=== PATIENT | male | born 1980 | race Asian ===

== ENCOUNTER 2018-01-22 05:53 | Day surgery (SDC) | payer OTHER ==
[~2018-01-22] VITALS: Ht 167.6 cm; Wt 78.6 kg
[~2018-01-22 05:53] MED LIST: ADV250 IH; ALBU8HFA IH; CYCLOPENTOLATE HCL 2% 2 ML OPHTHALMIC SOLUTION ONE; KETOROLAC TROMETHAMINE 0.5% 5 ML OPHTHALMIC SOLUTION ONE; MOXIFLOXACIN HCL 0.5% 3 ML OPHTHALMIC SOLUTION ONE; PHENYLEPHRINE HCL 2.5% 2 ML OPHTHALMIC SOLUTION ONE; RINGERS SOLUTION,LACTATED 500 ML IV ONE; TETRACAINE HCL/PF 0.5% 4 ML OPHTHALMIC SOLUTION ONE
[2018-01-22] MEDS ORDERED: HYALURONATE SODIUM 12 MG/ML 0.8 ML SYRINGE IO ONE (05:54)
[2018-01-22] MEDS ORDERED: ACETAMINOPHEN 325 MG TABLET PO PRN (06:00)
[2018-01-22] MEDS ORDERED: RINGERS SOLUTION,LACTATED 500 ML IV ONE (06:00)
[2018-01-22] MEDS: MOXIFLOXACIN HCL 0.5% 3 ML OPHTHALMIC SOLUTION OD SCH ×3 (06:41→06:54)
[2018-01-22] MEDS: KETOROLAC TROMETHAMINE 0.5% 5 ML OPHTHALMIC SOLUTION OD SCH ×3 (06:41→06:54)
[2018-01-22] MEDS: CYCLOPENTOLATE HCL 2% 2 ML OPHTHALMIC SOLUTION OD SCH ×3 (06:41→06:54)
[2018-01-22] MEDS: PHENYLEPHRINE HCL 2.5% 2 ML OPHTHALMIC SOLUTION OD SCH ×3 (06:41→06:54)
[2018-01-22] MEDS: TETRACAINE HCL/PF 0.5% 4 ML OPHTHALMIC SOLUTION OD SCH ×3 (06:41→06:54)
[2018-01-22] MEDS ORDERED: LIDOCAINE HCL/PF 1% 2 ML VIAL ONE (06:43)
[2018-01-22] MEDS ORDERED: EPINEPHrine 1:1,000 [1 MG/ML] AMP ONE (06:43)
[2018-01-22] MEDS ORDERED: POVIDONE-IODINE 10% 15 ML SOLUTION UD ONE (06:44)
[2018-01-22] MEDS ORDERED: TETRACAINE HCL VISCOUS 0.5% 0.6 ML OPHTHALMIC SOLUTION ONE (06:45)
[2018-01-22] MEDS ORDERED: PILOCARPINE HCL 4% 15 ML OPHTHALMIC SOLUTION ONE (07:50)
[2018-01-22] MEDS ORDERED: MIDAZOLAM HCL 2 MG/2 ML VIAL IVP ONE (12:00)
== END 2018-01-22 08:55 | disposition home or self-care (01) ==
LOC: SURGERY 05:53
PROVIDERS: ATTEND Ophthalmology
DX: H25.11 Age-related nuclear cataract, right eye (principal); I10 Essential (primary) hypertension; J45.998 Other asthma; Z79.899 Other long term (current) drug therapy
CPT/HCPCS: 66984; C1780; J0171; J2250; J3490; J7120